=== PATIENT | male | born 1935 | race Caucasian/White ===

== ENCOUNTER → 2016-05-27 | Outpatient (REF) | payer MEDICARE, BC, OTHER ==
[2016-05-27 14:19] LABS: VITAMIN B12 LEVEL 617 PG/ML
[2016-05-27 14:20] LABS: FOLATE 22.1 NG/ML
[2016-05-27 14:22] LABS: TOTAL PROTEIN 7.1 GM/DL (6.4-8.2)
[2016-05-28 11:34] LABS: ALBUMIN % 59.2 % (55.8-66.1); GAMMA GLOBULIN % 10.5 % (11.1-18.8)
[2016-06-01 00:06] LABS: VITAMIN E LEVEL 9.7 mg/L (5.3-17.5)
== END ==
LOC: M LABNEURO 13:32
PROVIDERS: ATTEND Psychiatry & Neurology Neurology
DX: G60.9 Hereditary and idiopathic neuropathy, unspecified (principal)

== ENCOUNTER 2021-05-29 14:13 | Inpatient (IN) | payer MEDICARE, BC, OTHER ==
[~2021-05-29] VITALS: Ht 172.7 cm; Wt 87.9 kg
[2021-05-29] MEDS: ASPIRIN 81MG ENTERIC TABLET PO SCH (09:00)
[2021-05-29] MEDS: SIMVASTATIN 20 MG TAB PO SCH (09:00)
[~2021-05-29 14:13] MED LIST: MEMANTINE 5MG TABLET (NAMENDA) PO SCH
[2021-05-29] MEDS ORDERED: LEVO25TA5 PO (15:05)
[2021-05-29] MEDS ORDERED: GLIM4TAB5 PO (15:05)
[2021-05-29] MEDS ORDERED: MEMA1TAB3 PO (15:05)
[2021-05-29] MEDS ORDERED: ATIV1TAB10 PO (15:05)
[2021-05-29] MEDS ORDERED: OMEP-173 PO (15:05)
[2021-05-29] MEDS ORDERED: LEVO100T5 PO (15:05)
[2021-05-29] MEDS ORDERED: SIMV20TA22 PO (15:05)
[2021-05-29] MEDS ORDERED: METF500T13 PO (15:05)
[2021-05-29] MEDS ORDERED: MECL-86 PO (15:16)
[2021-05-29] MEDS ORDERED: ASPI81TA26 PO (15:16)
[2021-05-29] MEDS ORDERED: HOME MED LIST COMPLETE! XX SCH (15:20)
[2021-05-29 15:35] LABS: VENOUS BASE EXCESS -1.9 (-2.0-2.0); VENOUS HCO3 23.3 MEQ/L (23.0-27.0); VENOUS PARTIAL PRESSURE CO2 41.1 mmHg (38.0-50.0); VENOUS PARTIAL PRESSURE O2 56.9 mmHg (30.0-50.0); VENOUS PH 7.371 UNITS (7.330-7.430); VENOUS STANDARD HCO3 22.7 MEQ/L; VENOUS TOTAL CO2 24.5 MEQ/L (24.0-28.0)
[2021-05-29 15:41] LABS: BASO % 0.5 % (0.0-1.0); EOS % 0.3 % (0.0-3.0); HEMATOCRIT 39.4 % (42.0-52.0); HEMOGLOBIN 12.3 g/dl (13.5-17.5); LYMPH # 1.4 10^3/uL (1.5-5.0); LYMPH % 15.7 % (24.0-44.0); MEAN CORPUSCULAR HEMOGLOBIN 27.3 pg (27.0-33.0); MEAN CORPUSCULAR HGB CONC 31.2 g/dl (32.0-36.5); MEAN CORPUSCULAR VOLUME 87.6 fl (80.0-96.0); MONO # 0.7 10^3/uL (0.0-0.8); MONO % 7.8 % (2.0-8.0); NEUTROPHILS # 6.5 10^3/uL (1.5-8.5); NEUTROPHILS % 75.2 % (36.0-66.0); PLATELET COUNT, AUTOMATED 285 10^3/uL (150-450); WHITE BLOOD COUNT 8.7 10^3/uL (4.0-10.0)
[2021-05-29 16:16] LABS: ALBUMIN 3.6 GM/DL (3.2-5.2); ALT/SGPT 15 U/L (12-78); BILIRUBIN,DIRECT 0.4 MG/DL (0.0-0.2); BILIRUBIN,TOTAL 1.8 MG/DL (0.2-1.0); BLOOD UREA NITROGEN 19 MG/DL (7-18); CALCIUM LEVEL 9.2 MG/DL (8.8-10.2); CARBON DIOXIDE LEVEL 25 MEQ/L (21-32); CHLORIDE LEVEL 105 MEQ/L (98-107); GLOMERULAR FILTRATION RATE > 60.0 (>35); GLUCOSE, FASTING 168 MG/DL (70-100); POTASSIUM SERUM 4.7 MEQ/L (3.5-5.1); SODIUM LEVEL 138 MEQ/L (136-145); TOTAL PROTEIN 7.4 GM/DL (6.4-8.2)
[2021-05-29 16:28] LABS: OSMOLALITY SERUM 298 MOSM/KG (280-301)
[2021-05-29 16:35] LABS: RSV AMPLIFICATION NEGATIVE (NEGATIVE)
[2021-05-29] MEDS ORDERED: DEXTROSE 50% 50 ML SYRINGE IV PRN (16:40)
[2021-05-29] MEDS ORDERED: GLUCAGON INJ 1MG VIAL SC PRN (16:40)
[2021-05-29] MEDS ORDERED: MECLIZINE 25 MG TABLET PO PRN (16:40)
[2021-05-29] MEDS ORDERED: NS 500 ML IV ONE (16:40)
[2021-05-29] MEDS ORDERED: LORazepam 0.5 MG TAB PO PRN (16:40)
[2021-05-29] MEDS ORDERED: GLUCOSE 4GM CHEW TABLET PO PRN (16:40)
[2021-05-29] MEDS: NS 1,000 ML IV SCH (16:40)
[2021-05-29 16:51] LABS: BILIRUBIN, URINE MANUAL NEGATIVE (NEGATIVE); GLUCOSE, URINE (UA) MANUAL NEGATIVE (NEGATIVE); KETONE, URINE MANUAL 1+ mg/dL (NEGATIVE); UROBILINOGEN, URINE MANUAL NORMAL (NORMAL)
[2021-05-29 17:06] LABS: SQUAMOUS EPITHELIAL CELL URINE SMALL AMOUNT /hpf (SMALL AMT)
[2021-05-29 17:08] LABS: BACTERIA, URINE NONE SEEN; HYALINE CAST, URINE 0-1 /lpf (0-1); MUCUS, URINE LARGE AMOUNT (NEGATIVE)
[2021-05-29] MEDS: HumaLOG INSULIN (NovoLOG) PER UNIT SC SCH (17:30)
[2021-05-29] MEDS ORDERED: GLIMEPIRIDE 2 MG TAB PO SCH (18:00)
[2021-05-29 20:17] LABS: CHOLESTEROL RISK RATIO 4.153 (<5)
[2021-05-29 20:26] LABS: INR 1.05; PROTHROMBIN TIME 14.1 SECONDS (12.7-14.5)
[2021-05-29 20:27] LABS: PARTIAL THROMBOPLASTIN TIME 35.7 SECONDS (25.9-37.0)
[2021-05-29 20:45] LABS: HEMOGLOBIN A1c 7.3 %
[2021-05-29] MEDS: OMEPRAZOLE 20MG CAP PO SCH (21:00)
[2021-05-29 22:05] VITALS: BP 168/80
[2021-05-30 06:00] VITALS: BP_SYST 134; BP_SYST 148; BP_SYST 152; BP_DIAS 65; BP_DIAS 68; BP_DIAS 73
[2021-05-30 06:02] LABS: HEMATOCRIT 33.3 % (42.0-52.0); HEMOGLOBIN 10.8 g/dl (13.5-17.5); MEAN CORPUSCULAR HEMOGLOBIN 28.2 pg (27.0-33.0); MEAN CORPUSCULAR HGB CONC 32.4 g/dl (32.0-36.5); MEAN CORPUSCULAR VOLUME 86.9 fl (80.0-96.0); PLATELET COUNT, AUTOMATED 278 10^3/uL (150-450); RED BLOOD COUNT 3.83 10^6/uL (4.30-6.10)
[2021-05-30] MEDS: LEVOTHYROXINE 100MCG TABLET (0.1MG) PO SCH (06:27)
[2021-05-30] MEDS: LEVOTHYROXINE 25MCG TABLET (0.025MG) PO SCH (06:27)
[2021-05-30 06:35] LABS: ALT/SGPT 13 U/L (12-78); BILIRUBIN,TOTAL 1.7 MG/DL (0.2-1.0); BLOOD UREA NITROGEN 17 MG/DL (7-18); CALCIUM LEVEL 8.4 MG/DL (8.8-10.2); CARBON DIOXIDE LEVEL 25 MEQ/L (21-32); CHLORIDE LEVEL 107 MEQ/L (98-107); CREATININE FOR GFR 0.84 MG/DL (0.70-1.30); GLOMERULAR FILTRATION RATE > 60.0 (>35); GLUCOSE, FASTING 108 MG/DL (70-100); POTASSIUM SERUM 3.4 MEQ/L (3.5-5.1); SODIUM LEVEL 140 MEQ/L (136-145); TOTAL PROTEIN 6.8 GM/DL (6.4-8.2)
[2021-05-30] MEDS ORDERED: POTASSIUM CHLORIDE 10MEQ SR TABLET PO ONE (07:55)
[2021-05-30] MEDS: HumaLOG INSULIN (NovoLOG) PER UNIT SC SCH ×3 (11:11→17:27)
[2021-05-30] MEDS: ENOXAPARIN 40MG/0.4ML SYRINGE (J1650 PER 10MG) SC SCH (11:33)
[2021-05-30] MEDS: SIMVASTATIN 20 MG TAB PO SCH (11:33)
[2021-05-30] MEDS: ASPIRIN 81MG ENTERIC TABLET PO SCH (11:33)
[2021-05-30] MEDS: PARoxetine 10MG TABLET PO SCH (11:33)
[2021-05-30] MEDS: NS 1,000 ML IV SCH ×2 (11:34→20:36)
[2021-05-30] MEDS: OMEPRAZOLE 20MG CAP PO SCH ×2 (11:37→20:36)
[2021-05-30 14:00] VITALS: BP 136/75
[2021-05-30 19:21] VITALS: BP 139/70
[2021-05-30 21:00] VITALS: BP 152/88
[2021-05-30 22:11] LABS: BILIRUBIN, URINE MANUAL NEGATIVE (NEGATIVE); GLUCOSE, URINE (UA) MANUAL 4+(1000 MG/DL) mg/dL (NEGATIVE); KETONE, URINE MANUAL NEGATIVE (NEGATIVE); UROBILINOGEN, URINE MANUAL NORMAL (NORMAL)
[2021-05-30 22:21] LABS: BACTERIA, URINE NONE SEEN; HYALINE CAST, URINE NONE SEEN /lpf (0-1); MUCUS, URINE SMALL AMOUNT (NEGATIVE); SQUAMOUS EPITHELIAL CELL URINE SMALL AMOUNT /hpf (SMALL AMT)
[2021-05-31 05:55] VITALS: BP_SYST 145; BP_SYST 146; BP_SYST 148; BP_DIAS 77; BP_DIAS 85; BP_DIAS 91
[2021-05-31] MEDS: LEVOTHYROXINE 25MCG TABLET (0.025MG) PO SCH (05:58)
[2021-05-31] MEDS: LEVOTHYROXINE 100MCG TABLET (0.1MG) PO SCH (05:58)
[2021-05-31 06:00] VITALS: BP 146/77
[2021-05-31 06:38] LABS: HEMATOCRIT 33.3 % (42.0-52.0); HEMOGLOBIN 10.6 g/dl (13.5-17.5); MEAN CORPUSCULAR HEMOGLOBIN 27.7 pg (27.0-33.0); MEAN CORPUSCULAR HGB CONC 31.8 g/dl (32.0-36.5); MEAN CORPUSCULAR VOLUME 86.9 fl (80.0-96.0); PLATELET COUNT, AUTOMATED 301 10^3/uL (150-450); RED BLOOD COUNT 3.83 10^6/uL (4.30-6.10); WHITE BLOOD COUNT 7.9 10^3/uL (4.0-10.0)
[2021-05-31 06:59] LABS: ALBUMIN 3.2 GM/DL (3.2-5.2); ALT/SGPT 16 U/L (12-78); BILIRUBIN,TOTAL 1.6 MG/DL (0.2-1.0); BLOOD UREA NITROGEN 11 MG/DL (7-18); CALCIUM LEVEL 8.4 MG/DL (8.8-10.2); CARBON DIOXIDE LEVEL 25 MEQ/L (21-32); CHLORIDE LEVEL 107 MEQ/L (98-107); CREATININE FOR GFR 0.75 MG/DL (0.70-1.30); GLOMERULAR FILTRATION RATE > 60.0 (>35); GLUCOSE, FASTING 146 MG/DL (70-100); MAGNESIUM LEVEL 1.8 MG/DL (1.8-2.4); POTASSIUM SERUM 4.1 MEQ/L (3.5-5.1); SODIUM LEVEL 139 MEQ/L (136-145); TOTAL PROTEIN 6.9 GM/DL (6.4-8.2)
[2021-05-31] MEDS: HumaLOG INSULIN (NovoLOG) PER UNIT SC SCH ×3 (08:03→17:46)
[2021-05-31] MEDS: SIMVASTATIN 20 MG TAB PO SCH (08:03)
[2021-05-31] MEDS: OMEPRAZOLE 20MG CAP PO SCH ×2 (08:03→20:35)
[2021-05-31] MEDS: ENOXAPARIN 40MG/0.4ML SYRINGE (J1650 PER 10MG) SC SCH (08:03)
[2021-05-31] MEDS: ASPIRIN 81MG ENTERIC TABLET PO SCH (08:03)
[2021-05-31] MEDS: PARoxetine 10MG TABLET PO SCH (08:03)
[2021-05-31 14:00] VITALS: BP 146/72
[2021-05-31] MEDS ORDERED: ACETAMINOPHEN TAB 650MG DOSE (2X325MG) PO PRN (15:35)
[2021-05-31 20:45] VITALS: BP 138/61
[2021-05-31] MEDS ORDERED: SENNA 8.6 MG TAB (SENOKOT) PO PRN (22:20)
[2021-06-01] MEDS ORDERED: TAMSULOSIN 0.4 MG CAP PO ONE
[2021-06-01] MEDS: DOCUSATE SODIUM 100MG CAPSULE PO SCH ×3 (00:34→20:00)
[2021-06-01] MEDS: LEVOTHYROXINE 25MCG TABLET (0.025MG) PO SCH (05:40)
[2021-06-01] MEDS: LEVOTHYROXINE 100MCG TABLET (0.1MG) PO SCH (05:40)
[2021-06-01 05:53] LABS: HEMATOCRIT 33.5 % (42.0-52.0); HEMOGLOBIN 10.7 g/dl (13.5-17.5); MEAN CORPUSCULAR HEMOGLOBIN 27.8 pg (27.0-33.0); MEAN CORPUSCULAR HGB CONC 31.9 g/dl (32.0-36.5); PLATELET COUNT, AUTOMATED 290 10^3/uL (150-450); RED BLOOD COUNT 3.85 10^6/uL (4.30-6.10); WHITE BLOOD COUNT 7.9 10^3/uL (4.0-10.0)
[2021-06-01 06:00] VITALS: BP 130/84
[2021-06-01 06:14] LABS: ALT/SGPT 15 U/L (12-78); BILIRUBIN,TOTAL 1.1 MG/DL (0.2-1.0); BLOOD UREA NITROGEN 11 MG/DL (7-18); CALCIUM LEVEL 8.6 MG/DL (8.8-10.2); CARBON DIOXIDE LEVEL 31 MEQ/L (21-32); CHLORIDE LEVEL 105 MEQ/L (98-107); CREATININE FOR GFR 0.89 MG/DL (0.70-1.30); GLOMERULAR FILTRATION RATE > 60.0 (>35); GLUCOSE, FASTING 171 MG/DL (70-100); SODIUM LEVEL 140 MEQ/L (136-145)
[2021-06-01 08:00] VITALS: BP 110/62
[2021-06-01] MEDS: ENOXAPARIN 40MG/0.4ML SYRINGE (J1650 PER 10MG) SC SCH (09:34)
[2021-06-01] MEDS: ASPIRIN 81MG ENTERIC TABLET PO SCH (09:35)
[2021-06-01] MEDS: PARoxetine 10MG TABLET PO SCH (09:35)
[2021-06-01] MEDS: OMEPRAZOLE 20MG CAP PO SCH ×2 (09:35→20:00)
[2021-06-01] MEDS: HumaLOG INSULIN (NovoLOG) PER UNIT SC SCH ×3 (09:35→18:09)
[2021-06-01] MEDS: SIMVASTATIN 20 MG TAB PO SCH (09:35)
[2021-06-01 14:00] VITALS: BP 155/77
[2021-06-02] MEDS: LEVOTHYROXINE 100MCG TABLET (0.1MG) PO SCH (05:34)
[2021-06-02] MEDS: LEVOTHYROXINE 25MCG TABLET (0.025MG) PO SCH (05:34)
[2021-06-02 06:00] VITALS: BP 144/73
[2021-06-02 06:14] LABS: HEMATOCRIT 31.9 % (42.0-52.0); HEMOGLOBIN 10.3 g/dl (13.5-17.5); MEAN CORPUSCULAR HEMOGLOBIN 28.1 pg (27.0-33.0); MEAN CORPUSCULAR HGB CONC 32.3 g/dl (32.0-36.5); MEAN CORPUSCULAR VOLUME 87.2 fl (80.0-96.0); PLATELET COUNT, AUTOMATED 309 10^3/uL (150-450); RED BLOOD COUNT 3.66 10^6/uL (4.30-6.10); WHITE BLOOD COUNT 6.7 10^3/uL (4.0-10.0)
[2021-06-02 06:48] LABS: ALBUMIN 2.9 GM/DL (3.2-5.2); ALT/SGPT 16 U/L (12-78); BILIRUBIN,TOTAL 0.6 MG/DL (0.2-1.0); BLOOD UREA NITROGEN 14 MG/DL (7-18); CALCIUM LEVEL 8.8 MG/DL (8.8-10.2); CARBON DIOXIDE LEVEL 31 MEQ/L (21-32); CHLORIDE LEVEL 104 MEQ/L (98-107); CREATININE FOR GFR 0.87 MG/DL (0.70-1.30); GLOMERULAR FILTRATION RATE > 60.0 (>35); GLUCOSE, FASTING 179 MG/DL (70-100); POTASSIUM SERUM 3.8 MEQ/L (3.5-5.1); SODIUM LEVEL 138 MEQ/L (136-145); TOTAL PROTEIN 6.7 GM/DL (6.4-8.2)
[2021-06-02 09:00] VITALS: BP 145/67
[2021-06-02] MEDS: HumaLOG INSULIN (NovoLOG) PER UNIT SC SCH ×2 (09:20→12:25)
[2021-06-02] MEDS: ENOXAPARIN 40MG/0.4ML SYRINGE (J1650 PER 10MG) SC SCH (09:44)
[2021-06-02] MEDS: PARoxetine 10MG TABLET PO SCH (09:44)
[2021-06-02] MEDS: ASPIRIN 81MG ENTERIC TABLET PO SCH (09:45)
[2021-06-02] MEDS: DOCUSATE SODIUM 100MG CAPSULE PO SCH (09:45)
[2021-06-02] MEDS: SIMVASTATIN 20 MG TAB PO SCH (09:45)
[2021-06-02] MEDS: OMEPRAZOLE 20MG CAP PO SCH (09:45)
[2021-06-02] MEDS ORDERED: PARO5TAB PO (12:52)
[2021-06-02 14:00] VITALS: BP 138/70
== END 2021-06-02 14:36 | disposition home health service (06) | DRG 309 ==
LOC: M ED 14:13 → M ED INP 16:40 → ENRESERV 19:39 → M MSPAV 22:06
PROVIDERS: ADMIT Internal Medicine; ATTEND Internal Medicine
DX: I48.91 Unspecified atrial fibrillation (principal); G45.9 Transient cerebral ischemic attack, unspecified; F32.A Depression, unspecified; E78.5 Hyperlipidemia, unspecified; R62.7 Adult failure to thrive; E11.9 Type 2 diabetes mellitus without complications; R53.1 Weakness; E03.9 Hypothyroidism, unspecified; R29.6 Repeated falls; K21.9 Gastro-esophageal reflux disease without esophagitis; I10 Essential (primary) hypertension; F03.90 Unspecified dementia, unspecified severity, without behavioral disturbance, psychotic disturbance, mood disturbance, and anxiety; Z85.819 Personal history of malignant neoplasm of unspecified site of lip, oral cavity, and pharynx; Z92.3 Personal history of irradiation; F41.9 Anxiety disorder, unspecified; Z86.73 Personal history of transient ischemic attack (TIA), and cerebral infarction without residual deficits; Z79.82 Long term (current) use of aspirin; Z79.899 Other long term (current) drug therapy; F17.200 Nicotine dependence, unspecified, uncomplicated